=== PATIENT | male | born 1965 | race Caucasian/White ===

== ENCOUNTER 2021-12-06 08:53 | Emergency (ER) | payer OTHER ==
[2021-12-06] MEDS ORDERED: Morphine 4 MG/ML VIAL ONE (09:29)
[2021-12-06] MEDS ORDERED: Ondansetron PF 4 MG/2 ML Vial ONE (09:30)
[2021-12-06 09:59] LABS: ALT (SGPT) 30 U/L (8-55); AST (SGOT) 30 U/L (5-34); Albumin 4.5 g/dL (3.5-5.0); Alkaline Phosphatase 64 U/L (40-110); Anion Gap 13 mmol/L (10-20); BUN (Urea Nitrogen) 12 mg/dL (8.4-25.7); Bilirubin, Total 0.6 mg/dL (0.2-1.2); Calc. Creatinine Clearance 0 mL/min (70-130); Calcium 9.2 mg/dL (7.8-10.44); Carbon Dioxide 21 mmol/L (22-29); Chloride 107 mmol/L (98-107); Globulin 2.5 g/dL (2.4-3.5); Glucose 185 mg/dL (70-105); Lipase 28 U/L (8-78); Potassium 3.7 mmol/L (3.5-5.1); Sodium 137 mmol/L (136-145)
[2021-12-06 10:06] LABS: #Monocytes 0.3 10x3/uL (0.0-1.1); #Neutrophils 9.8 10x3/uL (1.5-8.4); %Basophils 0.4 % (0.0-2.0); %Lymphocytes 5.5 % (18.0-47.0); %Monocytes 2.3 % (0.0-10.0); %Neutrophils 91.4 % (40.0-75.0); Hemoglobin 13.7 g/dL (13.5-17.5); Mean Corpuscular HGB CONC 33.8 g/dL (32.0-36.0); Mean Corpuscular Volume 88.6 fl (81.2-95.1); Mean Platelet Volume 8.7 fl (7.4-10.4); Platelet Count 208 10x3/uL (150-450); RBC Distribution Width 12.9 % (11.5-14.5); Red Blood Cell (RBC) Count 4.57 10x6/uL (4.32-5.72); White Blood Cell (WBC) Count 10.7 10x3/uL (3.5-10.5)
[2021-12-06] MEDS ORDERED: Morphine 2 MG/ML VIAL ONE (11:14)
[2021-12-06] MEDS ORDERED: Ketorolac Tromethamine 30 MG/ML VIAL ONE (12:24)
[2021-12-06 12:46] LABS: Bilirubin Neg (Negative); Blood, Urine 250 (Negative); Clarity Slightly Cloudy (Clear); Glucose, Urine (Dipstick) Normal (Negative); Ketone, Urine Negative (Negative); Leukocyte Negative (Negative); Nitrite Negative (Negative); Protein, Urine (Dipstick) Negative (Neg-Trace); Specific Gravity, Urine 1.005 (1.002-1.036); Urobilinogen Normal mg/dL (Less than 2); pH, Urine 6.5 (5.0-9.0)
[2021-12-06 12:54] LABS: Bacteria/HPF None Seen HPF (None Seen); Squamous Epithelial 0-3 HPF (0-3); WBC/HPF 0-3 HPF (0-3)
[2021-12-06] MEDS ORDERED: Iopamidol 300 61% 100 ML VIAL FS ONE (15:38)
== END 2021-12-06 14:18 | disposition home or self-care (01) ==
LOC: CSHERS 08:53
DX: N13.2 Hydronephrosis with renal and ureteral calculous obstruction (principal); Z87.19 Personal history of other diseases of the digestive system
CPT/HCPCS: 74177; 80053; 81003; 81015; 83605; 83690; 85025; 94760; 96374; 96375; 96376; J1885; J2270; J2405; Q9967